=== PATIENT | male | born 2000 | race Caucasian/White ===

== ENCOUNTER 2022-05-31 12:19 | Observation (INO) ==
[2022-05-31] MEDS ORDERED: SODIUM CHLORIDE 0.9% 1000ML 1,000 ML IV ONE (12:34)
--- NOTE | 2022-05-31 12:36 | Emergency Department Note ---
Impression & Plan Myocarditis, Type 1 diabetes ED Provider Note Name: JOHN PAUL HASKINS Age: 21 Sex: M Arrives Via: Walk-In Informant: Patient ED Provider: Doc Robbins MD Chief Complaint: Chest pain Impression: As per impressions above Medical Decision Makin-year-old male with 1 week history of fevers, chills, sore throat some URI symptoms. He does have a history of type 1 diabetes noted some ketones earlier though they are improving. He was seen at urgent care with concern for pericarditis and thus sent to the ER. On arrival he is some nonspecific ST elev ation anterior laterally with mild depression inferiorly. There is no STEMI morphology and is not consistent with ACS. He has no current chest pain it is purely positional. Does have a history of an injury to his right mathew several weeks ago and no calf pain or thigh pain. I do not feel this is consistent with PE or dissection. His laboratory work-up is remarkable for a troponin of 12,000 and a mildly elevated CK. He had a chest x-ray prior to arrival which is reported as negative. The strep testing prior to arrival was negative. I did get a COVID/flu/RSV testing which is negative. Do not feel that he requires heparin at this time. I reviewed the case with on-call cardiology who agreed that if asymptomatic hold off on medications at this time. They advised hospitalization, echo and monitoring with repeat troponin. Patient is comfortable this plan. Prior Medical Record and Triage/Nursing Notes reviewed by Me Additional history obtained from chart and outpatient urgent care paperwork from [facility] Differentials:Myocarditis, Pericarditis, Effusion, PE, Dissection, pneumonia, amongst others. Vital Signs: reviewed and remarkable for no significant abnormalities Labs:Reviewed and remarkable for troponin elevation EKG:As per my interpretation. Indication chest pain. Normal sinus rhythm at 86 bpm and QTC of 411. There is nonspecific anterior lateral ST elevations with mild inferior depression which is very similar to the EKG from [facility]. There is no ectopy appreciated. Cardiac/Tele Monitoring: Cardiac Monitoring: An Order was placed for continuous cardiac monitoring. The monitor shows a rate of 80 with a normal sinus rhythm. Consults:Dr Kathy CURRY Cards, Dr Mir CURRY Hospitalist Plan: Disposition:Hospitalization. Condition: Good History of Present Illness:21-year-old male arrives for evaluation of chest pain. Patient notes he has been ill for the last week. Associated fevers, cough, cold, congestion with a T-max of 104 at home. Notes this morning he woke up and was feeling some chest discomfort. States sharp left-sided chest pain worse with bending forward. Better with laying flat. No medications prior to arrival. No falls, trauma, injuries. He denies syncope. States he is breathing well without any back pain, abdominal pain, nausea, vomiting, urinary/bowel symptoms, leg swelling, bruising/bleeding or other concerning signs or symptoms. He has no history of similar. Does have a history of diabetes notes his blood sugars have been running in the 300s with some ketones the last few days which is not unusual for him in the setting of infection. He states he feels comfortable managing this and otherwise has been doing well. No medications prior to arrival other than his insulin. Nothing further makes worse laying flat makes better. Patient does note that he injured his anterior left upper mathew about 4 weeks ago. Denies any calf or thigh pain notes that this area is been sore since he hit it. ROS: See above HPI for pertinent positives & negatives. A total of 10 systems reviewed and were otherwise negative. Past Medical History:Type 1 diabetes Past Surgical History:None Family History:See Below Social History:See Below Home Medications:See Below Allergies:No known drug allergies Vitals:Blood Pressure: 125/76, Pulse 91, RR 20, T 37C, O2 99% on RA Physical Exam: GENERAL: Patient is well appearing and in minimal distress. EYES: No scleral icterus, unremarkable pupils. ENT: Mucous membranes dry, no nasal congestion. NECK: No masses appreciated, nomeningismus, trachea is midline. RESPIRATORY: No dyspnea. Clear to auscultation and equal bilaterally. No wheeze, no rhonchi. CARDIOVASCULAR: Regular rate and rhythm.No murmurs, rubs, gallops appreciated. GASTROINTESTINAL: Abdomen soft, non-tender, no peritonitis.Bowel sounds positive.No masses appreciated. BACK: No midline tenderness, no CVA tenderness EXTREMITIES: Normal motion all extremities, no cyanosis, no edema. NEUROLOGIC: Alert and oriented, no acute motor or sensory deficits, no focal weakness, cranial nerves grossly intact. SKIN: No rash, no jaundice, no diaphoresis. Mild healing abrasion left upper anterior mathew. PSYCH: Appropriate GCS: 15 ED Course: Times/Reassessments: Stable throughout no distress and comfortable plan for hospitalization. Doc Robbins MD Past Med/Surg History Medical History Type 1 diabetes Surgical History No pertinent past surgical history Family History Denies family history of Ovarian cancer Prostate cancer Myocardial infarction Breast cancer Colorectal cancer Social History (Updated 09/12/21 @ 09:06 by Eva Montesinos LPN) Smoking Status: Never smoker Second Hand Exposure: No; Hx Alcohol Use: No Hx Substance Use: No Preferred Language: Tanzanian Communication Ability: Effective Hearing Ability: Normal Acoustic Intelligence Specialist Required: No marital status: Single Current Living Situation: Family Current Living Situation Comment: Lives with Grandmother and uncle current occupational status: employed current occupation: [employer] How many Children do You have: 0 Feels Safe at Home: Yes Childhood Exposure to Second-Hand Smoke: No caffeine: Yes (Iced Tea) Dental Care, Regularly: Yes 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 Use: always Sunscreen Use: Yes Allergies Allergies Allergy/AdvReac Type Severity Reaction Status Date / Time No Known Allergies Allergy Verified 05/31/22 15:38 Home Meds Home Medications Medication Instructions Recorded Confirmed insulin glargine 100 unit/mL (3 45 unit subcut QAM 11/29/20 05/31/22 mL) subcutaneous pen (Lantus Solostar U-100 Insulin) blood-glucose sensor (Dexcom G6 #3 ea 01/10/21 09/12/21 Sensor device) blood-glucose transmitter (Dexcom #1 ea 01/10/21 09/12/21 G6 Transmitter device) subcutaneous insulin pump (t:slim #1 ea 01/10/21 09/12/21 X2 Insulin Pump) insulin syringe-needle U-100 1 mL 02/21/21 09/12/21 31 gauge x 5/16" (BD Insulin Syringe Ultra-Fine) pen needle, diabetic 31 gauge x 02/21/21 09/12/21 3/16" (BD Ultra-Fine Mini Pen Needle) insulin lispro 100 unit/mL 0 sliding scale dose subcut 05/31/22 05/31/22 subcutaneous solution (Humalog DIRECTED U-100 Insulin) Previous Rx's Medication Instructions Recorded glucose 4 gram chewable tablet 12 g PO Q15M PRN hypoglycemia #20 06/06/21 tabs Results & Data (ED) Vital Signs Vital Signs - 24 hr 05/31/22 12:21 05/31/22 12:20 05/31/22 12:20 Temperature 37 C Temperature Source Temporal Artery Scan Pulse Rate 91 H Pulse Rate [Apical] Pulse Rate from SpO2 Sensor Pulse Rhythm Regular Pulse Rhythm [Apical] Pulse Strength Normal Pulse Strength [Apical] Respiratory Rate 20 16 Respiratory Effort / Characteristics Non-Labored Spontaneous Non-Labored Spontaneous Respiratory Depth Normal Normal Respiratory Pattern Blood Pressure 125/76 Blood Pressure [Right Arm] Blood Pressure Mean 92 Blood Pressure Mean [Right Arm] Pulse Oximetry 99 99 Oxygen Delivery Method Room Air Room Air Sepsis Recent Fever Within 48 Hours No Sepsis New/Unexplained Change in Mental Status No Sepsis Action Taken by Nursing No Action Required 05/31/22 13:00 05/31/22 13:10 05/31/22 13:20 Temperature Temperature Source Pulse Rate 88 84 79 Pulse Rate [Apical] Pulse Rate from SpO2 Sensor Pulse Rhythm Pulse Rhythm [Apical] Pulse Strength Pulse Strength [Apical] Respiratory Rate 16 24 22 Respiratory Effort / Characteristics Respiratory Depth Respiratory Pattern Blood Pressure Blood Pressure [Right Arm] Blood Pressure Mean Blood Pressure Mean [Right Arm] Pulse Oximetry 98 98 98 Oxygen Delivery Method Room Air Room Air Room Air Sepsis Recent Fever Within 48 Hours Sepsis New/Unexplained Change in Mental Status Sepsis Action Taken by Nursing 05/31/22 13:30 05/31/22 13:40 05/31/22 13:50 Temperature Temperature Source Pulse Rate 97 H 91 H 83 Pulse Rate [Apical] Pulse Rate from SpO2 Sensor Pulse Rhythm Pulse Rhythm [Apical] Pulse Strength Pulse Strength [Apical] Respiratory Rate 16 19 23 Respiratory Effort / Characteristics Respiratory Depth Respiratory Pattern Blood Pressure Blood Pressure [Right Arm] Blood Pressure Mean Blood Pressure Mean [Right Arm] Pulse Oximetry 98 99 98 Oxygen Delivery Method Room Air Room Air Room Air Sepsis Recent Fever Within 48 Hours Sepsis New/Unexplained Change in Mental Status Sepsis Action Taken by Nursing 05/31/22 14:00 05/31/22 14:10 05/31/22 15:00 Temperature Temperature Source Pulse Rate 82 87 Pulse Rate [Apical] 90 Pulse Rate from SpO2 Sensor 84 86 Pulse Rhythm Pulse Rhythm [Apical] Regular Pulse Strength Pulse Strength [Apical] Normal Respiratory Rate 18 21 18 Respiratory Effort / Characteristics Non-Labored Respiratory Depth Normal Respiratory Pattern Regular Blood Pressure 129/74 Blood Pressure [Right Arm] 111/59 L Blood Pressure Mean 92 Blood Pressure Mean [Right Arm] 76 Pulse Oximetry 99 99 98 Oxygen Delivery Method Room Air Room Air Room Air Sepsis Recent Fever Within 48 Hours Sepsis New/Unexplained Change in Mental Status Sepsis Action Taken by Nursing Laboratory Data Result diagrams: 05/31/22 12:48 05/31/22 12:48 Lab Results 05/31/22 05/31/22 05/31/22 Range/Units 12:44 12:48 12:48 WBC 4.67 L (4.8-10.8) K/ul RBC 4.93 (4.63-6.08) M/uL Hgb 13.8 L (14.0-18.0) g/dl Hct 42.0 (40.1-51.0) % MCV 85.2 (80.0-100.0) fL MCH 28.0 (25.0-34.0) pg MCHC 32.9 (32.0-36.0) g/dL RDW Std Deviation 38.3 (36.4-46.3) fL RDW Coeff of Kristen 12.3 (11.5-14.5) % Plt Count 225 (130-400) K/uL MPV 9.1 L (9.4-12.4) fL Neutrophils % (Manual) 49 % Lymphocytes % (Manual) 19 % Reactive Lymphs % (Man) 26 % Monocytes % (Manual) 7 % Neutrophils # (Manual) 2.29 (1.4-6.5) K/uL Lymphocytes # (Manual) 0.89 L (1.2-3.4) K/uL Reactive Lymphs # 1.21 K/uL Monocytes # (Manual) 0.33 (0.24-0.82) K/uL Sodium 142 (136-145) mmol/L Potassium 4.9 (3.5-5.1) mmol/L Chloride 107 (98-107) mmol/L Carbon Dioxide 28 (21-32) mmol/L Anion Gap 7 (3-11) BUN 13 (6-23) mg/dl Creatinine 0.81 (0.6-1.4) mg/dl Est Cr Clr Drug Dosing 156.2 ml/min Est GFR ( Amer) 149.3 ml/min Est GFR (Non-Af Amer) 128.8 ml/min BUN/Creatinine Ratio 16.0 (10-20) Glucose 109 H (70-99(Fasting)) mg/dl Calcium 9.2 (8.5-10.1) mg/dl Magnesium 2.3 (1.7-2.4) mg/dl Total Creatine Kinase 622 H (30-223) U/L Troponin I High Sens 66344.0 H* (0-20) pg/ml C-Reactive Protein 12.15 H (0-0.5) mg/dl SARS-CoV-2 (PCR) NEGATIVE (Negative) Influenza Type A (PCR) Negative (Neg) Influenza Type B (PCR) Negative (Neg) RSV (RT-PCR) Negative (Neg) Administered Medications Discontinued Medications Sodium Chloride (Nss 1000ml) 1,000 mls @ 999 mls/hr IV .Q1H1M ONE Stop: 05/31/22 13:34 Last Infusion: 05/31/22 14:10 Dose: 0 mls/hr Documented By: PR Admin: 05/31/22 12:51 Dose: 999 mls/hr Documented By: OAM Discharge Plan Visit Data Chief Complaint: Cardiac Assessment Stated Complaint: HEART PROBLEMS ED Provider: Doc Robbins Discharge Problem: Myocarditis, Type 1 diabetes Forms Stand Alone Forms: [facility] [employer] Prescriptions Prescriptions: No Action glucose 4 gram tablet,chewable 12 g PO Q15M PRN (Reason: hypoglycemia) Qty: 20 3RF Rx Instructions: until symptoms of low blood sugar are controlled (DME) t:slim X2 Insulin Pump Misc See Rx Instructions .ROUTE .MEDSUPPLY Qty: 1 Rx Instructions: As directed (DME) Dexcom G6 Transmitter Device See Rx Instructions .ROUTE .MEDSUPPLY Qty: 1 Rx Instructions: As directed (DME) Dexcom G6 Sensor Device See Rx Instructions .ROUTE .MEDSUPPLY Qty: 3 Rx Instructions: As directed Lantus Solostar U-100 Insulin 100 unit/mL (3 mL) insulin pen 45 unit subcut QAM Rx Instructions: PER PT. (DME) insulin syringe-needle U-100 [BD Insulin Syringe Ultra-Fine] 1 mL 31 gauge x 5/16 syringe See Rx Instructions miscellaneous .MEDSUPPLY Rx Instructions: Inject with Humalog three times daily in case of pump failure PRN (DME) pen needle, diabetic [BD Ultra-Fine Mini Pen Needle] 31 gauge x 3/16" needle See Rx Instructions .Route Rx Instructions: Inject once daily with Lantus in case of pump failure PRN insulin lispro [Humalog U-100 Insulin] 100 unit/mL solution 0 sliding scale dose subcut DIRECTED MDD 150 UNITS/DAILY Rx Instructions: PER PT "PUMP NOT ON". via insulin pump; TDD 150 units Referrals Referrals: Miguel Ann DO [Primary Care Provider] -
[2022-05-31 12:58] LABS: Hemoglobin 13.8 g/dl (14.0-18.0); Mean Corpuscular Hgb Conc 32.9 g/dL (32.0-36.0); Mean Corpuscular Volume 85.2 fL (80.0-100.0); Mean Platelet Volume 9.1 fL (9.4-12.4); Platelet Count 225 K/uL (130-400); RDW Coefficient of Variation 12.3 % (11.5-14.5); RDW Standard Deviation 38.3 fL (36.4-46.3); Red Blood Count 4.93 M/uL (4.63-6.08); White Blood Count 4.67 K/ul (4.8-10.8)
[2022-05-31 13:20] LABS: Lymphocytes # (manual) 0.89 K/uL (1.2-3.4); Lymphocytes % (manual) 19 %; Monocytes # (manual) 0.33 K/uL (0.24-0.82); Monocytes % (manual) 7 %; Neutrophils # (manual) 2.29 K/uL (1.4-6.5); Neutrophils % (manual) 49 %; Reactive Lymphocytes # (manual) 1.21 K/uL; Reactive Lymphocytes % (manual) 26 %
[2022-05-31 13:34] LABS: C Reactive Protein 12.15 mg/dl (0-0.5); Calcium 9.2 mg/dl (8.5-10.1); Creatinine Clr Calc Pharmacy 156.2 ml/min; Est GFR (African American) 149.3 ml/min; Est GFR (Non-African American) 128.8 ml/min; Magnesium 2.3 mg/dl (1.7-2.4); Potassium 4.9 mmol/L (3.5-5.1)
[2022-05-31 13:35] LABS: Influenza A virus by PCR Negative (Neg); Influenza B virus by PCR Negative (Neg); RSV by PCR Negative (Neg); SARS CoV2 RNA(COVID-19) Ceph NEGATIVE (Negative)
--- NOTE | 2022-05-31 15:03 | History & Physical Report ---
Date of Service May 31, 2022 Assessment & Plan (1) Myocarditis: Plan: Patient will be observed for myocarditis pending echocardiogram serial troponins and EKGs kept on the monitor. After discussion with cardiology since for concern for myocarditis or pericarditis will not institute ibuprofen therapy however if chest pain does resolve consideration of aspirin therapy twice daily would be recommended and if that does not work consideration of colchicine at that point. Echocardiogram is being performed in the ER pending cardiology consultation today Patient is currently without symptoms (2) Type 1 diabetes: Plan: Patient is on insulin pump however at home had ketones and took himself off his pump. He was copiously hydrating himself. He was instructed that when he takes himself off the pump he should have the following Lantus 45 units every morning which he took in the morning of 05/31/2022 Humalog sliding scale with the goal range of 110 and 160 correction factor of 18 and a carb ratio of 5:1 We will employ this sliding scale until the patient's father brings his insulin pump at which time we will allow him to use his pump and home monitoring system Plan DVT prevention is SCDs and early ambulation History of Present Illness Primary Care Provider: Miguel Ann, 21-year-old type I diabetic presents to the ER with shaking chills fever body aches and elevation of his blood glucose with ketones present by home dipstick. Patient states he has been sick for about a week week and a half. He is had a high temperature of 104 at home. Other people in his family have been sick. He states he is never been admitted for DKA. In the ER he is markedly elevated troponin at 12,000 with concerns for myocarditis. The patient did take ibuprofen at home and currently has no chest pain. Additionally he has a CRP of 12.5 and an EKG showing diffuse ST changes. Because the patient is pain-free will not institute therapy however if therapy would be recommended cardiology does recommend aspirin and possibly colchicine but to avoid nonsteroidals at this time as the patient has more myocarditis and pericarditis. Initial viral studies of COVID RSV and influenza are negative in the emergency department chest x-ray is pending at this time Allergies Allergy/AdvReac Type Severity Reaction Status Date / Time No Known Allergies Allergy Verified 09/12/21 09:00 Home Medications Medication Instructions Recorded Confirmed Type insulin glargine 100 unit/mL (3 See Rx Instructions subcut QPM PRN 11/29/20 09/12/21 History mL) subcutaneous pen (Lantus Solostar U-100 Insulin) blood-glucose sensor (Dexcom G6 #3 ea 01/10/21 09/12/21 History Sensor device) blood-glucose transmitter (Dexcom #1 ea 01/10/21 09/12/21 History G6 Transmitter device) subcutaneous insulin pump (t:slim #1 ea 01/10/21 09/12/21 History X2 Insulin Pump) insulin syringe-needle U-100 1 mL 02/21/21 09/12/21 History 31 gauge x 5/16" (BD Insulin Syringe Ultra-Fine) pen needle, diabetic 31 gauge x 02/21/21 09/12/21 History 3/16" (BD Ultra-Fine Mini Pen Needle) glucose 4 gram chewable tablet 12 g PO Q15M PRN hypoglycemia #20 06/06/21 09/12/21 Rx tabs insulin lispro 100 unit/mL 150 unit (1.5 mL) subcut .COMPLEX 02/06/22 Rx subcutaneous solution (Humalog #50 mL U-100 Insulin) Past Med/Surg History Medical History Type 1 diabetes Surgical History No pertinent past surgical history Family History Denies family history of Ovarian cancer Prostate cancer Myocardial infarction Breast cancer Colorectal cancer Social History (Updated 09/12/21 @ 09:06 by Eva Montesinos LPN) Smoking Status: Never smoker Second Hand Exposure: No; Hx Alcohol Use: No Hx Substance Use: No Preferred Language: Finnish Communication Ability: Effective Hearing Ability: Normal Family And Consumer Sciences Professor Required: No marital status: Single Current Living Situation: Family Current Living Situation Comment: Lives with Grandmother and uncle current occupational status: employed current occupation: [employer] How many Children do You have: 0 Feels Safe at Home: Yes Childhood Exposure to Second-Hand Smoke: No caffeine: Yes (Iced Tea) Dental Care, Regularly: Yes 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 Use: always Sunscreen Use: Yes Review of Systems Review of Systems: Moderate distress and fatigue no headache, no visual changes no speech or swallowing issues does have minor sore throat Prehospital chest pain, since resolved, no pressure or palpitations no shortness of breath, has had a nonproductive cough no abdominal pain, nausea or vomiting, diarrhea or constipation no dysuria, hematuria or frequency no focal joint pain or swelling no back pain, CVA tenderness or radicular pain no bruising, bleeding or rashes no focal signs of weakness or numbness or altered sensation no complaints of anxiety or depression.. Physical Exam Physical Exam: The patient appeared well nourished and normally developed. Vital signs as documented. Tympanic membranes are clear oropharynx is erythematous without exudates Head exam is normocephalic atraumatic Neck is without JVD, thyromegaly, or carotid bruits. No lymphadenopathy Lungs are clear to auscultation, no focal loss of breath sounds Cardiac exam, Rhythm is regular.. No murmurs, rubs or gallops. Abdominal exam reveals normal bowel sounds, soft non tender, no masses Extremities are nonedematous and both pedal pulses are present Neurologic exam is alert and oriented, no focal loss of strength or sensation Skin is without bruises or rashes Psychologically is without concerns for anxiety or depression.. Results & Data Results & Data ([place]) Vital Signs (Past 12 Hours) Vital Signs Temp Pulse Resp BP Pulse Ox O2 Del Method 05/31/22 14:10 87 21 99 Room Air 05/31/22 14:00 82 18 129/74 99 Room Air 05/31/22 13:50 83 23 98 Room Air 05/31/22 13:40 91 H 19 99 Room Air 05/31/22 13:30 97 H 16 98 Room Air 05/31/22 13:20 79 22 98 Room Air 05/31/22 13:10 84 24 98 Room Air 05/31/22 13:00 88 16 98 Room Air 05/31/22 12:20 16 05/31/22 12:20 99 Room Air 05/31/22 12:21 98.6 F 91 H 20 125/76 99 Room Air Code Status & VTE Plan VTE Prophylaxis Plan VTE Prophylaxis will be ordered: Yes PG Care Time/CCT Total # of Minutes Spent Total Time Spent with Patient: Total time spent is greater than 50% in coordination of care (as documented) at patient's floor/unit and/or counseling patient: Coding Level of Care Code INT OBSERVATION CARE 70M LVL 3 Diagnoses Myocarditis I51.4 Type 1 diabetes E10.65 Diabetes mellitus complication status: with hyperglycemia (1) Type 1 diabetes Diabetes mellitus complication status: with hyperglycemia Qualified Code(s): E10.65 - Type 1 diabetes mellitus with hyperglycemia
--- NOTE | 2022-05-31 15:40 | Cardiology Consultation ---
Date of Consultation May 31, 2022 Assessment & Plan (1) Acute myopericarditis: Plan ASSESSMENT/PLAN: 1. Acute myopericarditis: Discussed the diagnosis with patient. Fortunately, chest pain-free currently and had been taking ibuprofen for several days. Will start colchicine 0.6 mg p.o. b.i.d. and continue for a 3 month course. If he should have recurrent chest pain, can start b.i.d. aspirin. Should avoid strenuous exercise for 3 months. Continue to trend troponins and monitor for arrhythmia on telemetry. Fortunately, LV systolic function is normal. 2. Disposition: Tomorrow, please contact the on-call secure software assessor for questions or concerns. Will notify on-call Cardiology about this patient's presentation and plan of care. Patient discussed with Dr. Robbins of the emergency department and Dr. Hester of the hospitalist service. Thank you for allowing me to participate in the care of your patient. Please call for any other questions or concerns. Sincerely, Miles Chavez M.D. History of Present Illness Reason for Consultation: Myopericarditis Requesting Physician: Javan Hester Attending Physician: Javan Hester History of Present Illness Mr. Rivera is a very pleasant 21-year-old gentleman with a history significant for type 1 diabetes. He presented to the emergency department on 05/31/2022 with chest discomfort. For the past 1.5 weeks, he has been ill. It started with a sore throat. After a few days, he developed a fever. for the fever, he was taking ibuprofen 400- 600 mg every 3-4 hours. Last night he took NyQuil. Several days ago, he developed bad fevers and shaking chills. Last night, he developed chest pain which was described as a deep, ache, hard, pressure. It was pleuritic in nature, especially last night. It was also somewhat positional. He felt best however laying on his back and on his side and felt okay standing upright and sitting. If he bent over, chest pain would worsen last night when the chest pain began, he had shaking chills and drenching sweats while laying in bed. He once again took ibuprofen. Upon presentation here, he was afebrile. He was chest pain-free during this evaluation. His troponin was checked in the emergency department and noted to be 12,338. This prompted a call from Dr. Robbins of the emergency department. It was recommended that he be admitted. Thus far, he has been noted to be negative for flu, RSV, and COVID. Patient reports that he was also negative for strep. He has had many sick contacts recently including strep and flu. He denies shortness of breath, syncope, near-syncope, palpitations, edema, or bleeding. Review of systems: As above. Review of systems otherwise negative/unremarkable. Family history: No known premature CAD or cardiomyopathy. Social history: He denies tobacco, alcohol, or drug abuse. He lives with his aunt, uncle, and grandmother. His mother lives in [place] and his father lives nearby. He is on good terms with his parents. 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 He was unaccompanied in the emergency department. Allergies Allergy/AdvReac Type Severity Reaction Status Date / Time No Known Allergies Allergy Verified 05/31/22 15:38 Home Medications Medication Instructions Recorded Confirmed Type insulin glargine 100 unit/mL (3 45 unit subcut QAM 11/29/20 05/31/22 History mL) subcutaneous pen (Lantus Solostar U-100 Insulin) blood-glucose sensor (Dexcom G6 #3 ea 01/10/21 09/12/21 History Sensor device) blood-glucose transmitter (Dexcom #1 ea 01/10/21 09/12/21 History G6 Transmitter device) subcutaneous insulin pump (t:slim #1 ea 01/10/21 09/12/21 History X2 Insulin Pump) insulin syringe-needle U-100 1 mL 02/21/21 09/12/21 History 31 gauge x 5/16" (BD Insulin Syringe Ultra-Fine) pen needle, diabetic 31 gauge x 02/21/21 09/12/21 History 3/16" (BD Ultra-Fine Mini Pen Needle) glucose 4 gram chewable tablet 12 g PO Q15M PRN hypoglycemia #20 06/06/21 05/31/22 Rx tabs insulin lispro 100 unit/mL 0 sliding scale dose subcut 05/31/22 05/31/22 History subcutaneous solution (Humalog DIRECTED U-100 Insulin) Patient History Medical History Type 1 diabetes Surgical History No pertinent past surgical history Family History Denies family history of Ovarian cancer Prostate cancer Myocardial infarction Breast cancer Colorectal cancer Social History (Updated 09/12/21 @ 09:06 by Eva Montesinos LPN) Smoking Status: Never smoker Second Hand Exposure: No; Hx Alcohol Use: No Hx Substance Use: No Preferred Language: Arabic Communication Ability: Effective Hearing Ability: Normal Event Staff Required: No Beliefs That Will Affect Care: None marital status: Single Current Living Situation: Family Current Living Situation Comment: Lives with Grandmother and uncle current occupational status: employed current occupation: [employer] How many Children do You have: 0 Other Information That Helps Us Care for You: No Feels Safe at Home: Yes Safety Concerns: Feels Safe At This Time Childhood Exposure to Second-Hand Smoke: No caffeine: Yes (Iced Tea) Dental Care, Regularly: Yes 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 Use: always Sunscreen Use: Yes Assistive Devices: None Physical Exam Physical Exam: Gen.: No acute distress. Alert and oriented. HEENT: Anicteric sclera. Neck: No JVD. No bruits. Normal carotid upstrokes bilaterally. Cardiac: PMI was nondisplaced. No ventricular heave. Regular. Normal S1-S2. No murmurs, rubs, or gallops. Pulmonary: Clear to auscultation bilaterally without wheezes, rales, or rhonchi. Abdomen: Soft, nontender, nondistended, with normoactive bowel sounds. No bruits noted. Extremities: 2+ radial pulses bilaterally. 2+ posterior tibialis pulses bilaterally. No edema or cyanosis. Psychiatric: Affect appears appropriate. Results & Data ([facility]) Vital Signs (Past 12 Hours) Vital Signs Temp Pulse Pulse Resp BP BP Pulse Ox 05/31/22 15:00 90 18 111/59 L 98 05/31/22 14:10 87 21 99 05/31/22 14:00 82 18 129/74 99 05/31/22 13:50 83 23 98 05/31/22 13:40 91 H 19 99 05/31/22 13:30 97 H 16 98 05/31/22 13:20 79 22 98 05/31/22 13:10 84 24 98 05/31/22 13:00 88 16 98 05/31/22 12:20 16 05/31/22 12:20 99 05/31/22 12:21 37 C 91 H 20 125/76 99 O2 Del Method 05/31/22 15:00 Room Air 05/31/22 14:10 Room Air 05/31/22 14:00 Room Air 05/31/22 13:50 Room Air 05/31/22 13:40 Room Air 05/31/22 13:30 Room Air 05/31/22 13:20 Room Air 05/31/22 13:10 Room Air 05/31/22 13:00 Room Air 05/31/22 12:20 05/31/22 12:20 Room Air 05/31/22 12:21 Room Air Laboratory Results Laboratory Results - last 24 hr 05/31/22 05/31/22 05/31/22 12:44 12:48 12:48 WBC 4.67 L RBC 4.93 Hgb 13.8 L Hct 42.0 MCV 85.2 MCH 28.0 MCHC 32.9 RDW Std Deviation 38.3 RDW Coeff of Kristen 12.3 Plt Count 225 MPV 9.1 L Neutrophils % (Manual) 49 Lymphocytes % (Manual) 19 Reactive Lymphs % (Man) 26 Monocytes % (Manual) 7 Neutrophils # (Manual) 2.29 Lymphocytes # (Manual) 0.89 L Reactive Lymphs # 1.21 Monocytes # (Manual) 0.33 Sodium 142 Potassium 4.9 Chloride 107 Carbon Dioxide 28 Anion Gap 7 BUN 13 Creatinine 0.81 Est Cr Clr Drug Dosing 156.2 Est GFR ( Amer) 149.3 Est GFR (Non-Af Amer) 128.8 BUN/Creatinine Ratio 16.0 Glucose 109 H Calcium 9.2 Magnesium 2.3 Total Creatine Kinase 622 H Troponin I High Sens 27395.0 H* C-Reactive Protein 12.15 H SARS-CoV-2 (PCR) NEGATIVE Influenza Type A (PCR) Negative Influenza Type B (PCR) Negative RSV (RT-PCR) Negative Diagnostic Findings ECG personally reviewed: ECG 05/31/2022 at 12:28 PM: Sinus rhythm [address] elevation with ND depression, consider pericarditis. Echo 05/31/2022: Normal LV size, wall motion, systolic function. EF 55-60%. No significant valvular abnormalities. Medications Administered Current Inpatient Medications Acetaminophen (Acetaminophen 500 Mg Tab) 1,000 mg PO Q8H PRN PRN Reason: Pain or Fever Stop: 06/30/22 16:19 Dextrose (Dextrose 50% 50 Ml Syringe) 25 - 50 ml IV UD PRN; Protocol PRN Reason: Hypoglycemia Protocol Stop: 06/30/22 16:19 Glucagon (Glucagon For Inj 1 Mg Vial) 1 mg SQ UD PRN; Protocol PRN Reason: Hypoglycemia Protocol Stop: 06/30/22 16:19 Glucose (Glucose 40% Gel 15 Gm Tube) 15 - 30 gm PO UD PRN; Protocol PRN Reason: Hypoglycemia Protocol Stop: 06/30/22 16:19 Glucose (Glucose 10 Tab/Tube) 4 - 8 tab PO UD PRN; Protocol PRN Reason: Hypoglycemia Treatment Stop: 06/30/22 16:19 Sodium Chloride (Nss 1000ml) 1,000 mls @ 125 mls/hr IV .Q8H HECTOR Stop: 06/01/22 00:19 Last Admin: 05/31/22 16:39 Dose: 125 mls/hr Insulin Aspart (Insulin Aspart Per Unit) [address] [facility] Stop: 06/30/22 16:29 Last Admin: 05/31/22 17:38 Dose: 6 units Insulin Aspart (Insulin, Rapid-Acting Pump) 1 each N/A [facility]; Protocol Stop: 06/30/22 16:29 Last Admin: 05/31/22 19:51 Dose: Not Given Insulin Aspart (Insulin Aspart 100 Units/Ml Vial) 0 units SC PRN PRN PRN Reason: Pump Refill Use ONLY Stop: 06/30/22 16:44 Miscellaneous (Carbohydrates For Hypoglycemia ) 15 - 30 gm PO UD PRN PRN Reason: Hypoglycemia Protocol Stop: 06/30/22 16:19 Morphine Sulfate (Morphine Sulfate 2 Mg/Ml Carp) 2 mg IV Q30M PRN PRN Reason: Chest Pain Stop: 06/14/22 16:19 Ondansetron HCl (Ondansetron Inj 2 Mg/Ml 2 Ml Vial) 4 mg IV Q6H PRN PRN Reason: Nausea Stop: 06/30/22 16:19 Oxycodone HCl (Oxycodone Hcl Ir 5 Mg Tab (Immediate Release)) 10 mg PO Q6H PRN PRN Reason: Moderate Pain 4-6/ Stop: 06/14/22 16:19 PG Care Time/CCT Total # of Minutes Spent Total Time Spent with Patient: Total time spent is greater than 50% in coordination of care (as documented) at patient's floor/unit and/or counseling patient: Coding Level of Care Code 46836 Office/OBS Consult Lvl 4 Diagnoses Acute myopericarditis I30.9
[2022-05-31] MEDS ORDERED: GLUCOSE 10 TAB/TUBE PO PRN ×2 (16:20)
[2022-05-31] MEDS ORDERED: DEXTROSE 50% 50 ML SYRINGE IV PRN (16:20)
[2022-05-31] MEDS ORDERED: ACETAMINOPHEN 500 MG TAB PO PRN (16:20)
[2022-05-31] MEDS ORDERED: NON-FORMULARY MEDICATION (Blood-Glucose Transmitter [Dexcom G6 Transmitter] device) SCH (16:20)
[2022-05-31] MEDS ORDERED: GLUCOSE 40% GEL 15 GM TUBE PO PRN (16:20)
[2022-05-31] MEDS ORDERED: ONDANSETRON INJ 2 MG/ML 2 ML VIAL IV PRN (16:20)
[2022-05-31] MEDS ORDERED: CARBOHYDRATES FOR HYPOGLYCEMIA PO PRN (16:20)
[2022-05-31] MEDS ORDERED: MoRPHine SULFATE 2 MG/ML CARP IV PRN (16:20)
[2022-05-31] MEDS ORDERED: NON-FORMULARY MEDICATION (Insulin Lispro [Humalog U-100 Insulin] 100 unit/mL solution) SQ SCH (16:20)
[2022-05-31] MEDS ORDERED: SODIUM CHLORIDE 0.9% 1000ML 1,000 ML IV SCH (16:20)
[2022-05-31] MEDS ORDERED: NON-FORMULARY MEDICATION (Blood-Glucose Sensor [Dexcom G6 Sensor] device) SCH (16:20)
[2022-05-31] MEDS ORDERED: oxyCODONE HCL IR 5 MG TAB (IMMEDIATE RELEASE) PO PRN (16:20)
[2022-05-31] MEDS ORDERED: GLUCAGON FOR INJ 1 MG VIAL SQ PRN (16:20)
[2022-05-31] MEDS ORDERED: INSULIN ASPART 100 UNITS/ML VIAL SC PRN (16:45)
[2022-05-31] MEDS: INSULIN ASPART PER UNIT SC SCH ×2 (17:38→21:18)
--- NOTE | 2022-05-31 18:09 | XCELERA ---
[id number]
[2022-05-31] MEDS: INSULIN, Rapid-Acting PUMP SCH ×2 (19:51→21:19)
[2022-05-31] MEDS: COLCHICINE 0.6 MG TAB PO SCH (21:13)
--- NOTE | 2022-05-31 23:59 | Electrocardiogram Report ---
Test Reason : Blood Pressure : / mmHG Vent. Rate : 086 BPM Atrial Rate : 086 BPM P-R Int : 162 ms QRS Dur : 094 ms QT Int : 344 ms P-R-T Axes : 041 074 018 degrees QTc Int : 411 ms Normal sinus rhythm ST elevation, consider early repolarization, pericarditis, or injury Abnormal ECG No previous ECGs available Confirmed by Maxwell Chavez ([id number]) on 05/31/2022 11:59:25 PM Referred By: Chandrakant Hodgson Confirmed By:Maxwell Chavez
[2022-06-01 06:53] LABS: Anion Gap 6 (3-11); BUN Creatinine Ratio 13.2 (10-20); Blood Urea Nitrogen 10 mg/dl (6-23); Calcium 8.9 mg/dl (8.5-10.1); Carbon Dioxide 29 mmol/L (21-32); Chloride 102 mmol/L (98-107); Creatinine Clr Calc Pharmacy 166.5 ml/min; Est GFR (African American) > 150.0 ml/min; Est GFR (Non-African American) 132.3 ml/min; Glucose 182 mg/dl (70-99(Fasting)); Potassium 4.5 mmol/L (3.5-5.1); Sodium 137 mmol/L (136-145)
[2022-06-01] MEDS: INSULIN ASPART PER UNIT SC SCH ×2 (09:45→12:00)
[2022-06-01] MEDS: INSULIN, Rapid-Acting PUMP SCH ×2 (09:45→12:02)
[2022-06-01] MEDS: COLCHICINE 0.6 MG TAB PO SCH (09:46)
--- NOTE | 2022-06-01 09:46 | Cardiology Progress Note ---
Date of Service June 01, 2022 Assessment & Plan (1) Acute myopericarditis: Plan: Patient is hemodynamically stable with benign telemetry and no symptoms, his troponin level has peaked and is now declining. As per Dr. 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 Would recommend cardiology follow-up with Dr. Chavez in 3 to 4 weeks. Will send a note to scheduling to arrange this, they will call him early next week. Okay for discharge home. Admission and Anticipated Discharge Date Admission Date: May 31, 2022 Subjective Doing well, no complaints. Denies chest pain, dyspnea, subjective palpitations, or lightheadedness. Telemetry shows sinus rhythm at normal rates with no significant ectopy. Physical Exam Physical Exam: No distress. BP normotensive. Pulse 90 bpm and regular without ectopy. Skin: no ecchymoses or generalized lesions. HEENT: unremarkable. Neck: no JVD or carotid bruits. Lungs: clear. Cardiac: regular rhythm, no murmur or gallop. No rub. Abdomen: benign. Extremities: no edema, pulses intact. Neurologic: normal affect and conversation, nonfocal. Results & Data ([facility]) Vital Signs (Past 12 Hours) Vital Signs Temp Pulse Pulse Resp BP Pulse Ox O2 Del Method 06/01/22 08:00 99.1 F 91 H 14 120/71 97 Room Air 06/01/22 02:38 98.1 F 97 H 18 132/68 100 Room Air 05/31/22 22:30 91 H 05/31/22 23:39 98.4 F 101 H 18 124/80 99 Room Air 05/31/22 22:22 99.7 F H Laboratory Results Peak troponin of 14,833 with subsequent value of 12,698 and 8904. Normal electrolytes, BUN 10, creatinine 0.76 Diagnostic Findings ECG today showed sinus rhythm at [address] elevations consistent with pericarditis. Compared with yesterday, lateral ST elevation less pronounced and lateral T waves now inverted (normal evolution for pericarditis). Echocardiogram yesterday showed EF 55-60% with no regional wall motion abnormalities or valvular abnormalities. Normal RVSP. PG Care Time/CCT Total # of Minutes Spent Total Time Spent with Patient: Total time spent is greater than 50% in coordination of care (as documented) at patient's floor/unit and/or counseling patient: Coding Level of Care Code 52225 Subseq Hosp Care Lvl 3 Diagnoses Acute myopericarditis I30.9
--- NOTE | 2022-06-01 10:37 | Electrocardiogram Report ---
Test Reason : Blood Pressure : / mmHG Vent. Rate : 085 BPM Atrial Rate : 085 BPM P-R Int : 170 ms QRS Dur : 090 ms QT Int : 350 ms P-R-T Axes : 012 082 076 degrees QTc Int : 416 ms Normal sinus rhythm Acute pericarditis Abnormal ECG When compared with ECG of 31-MAY-2022 12:28, ST elevation in Lateral leads less pronounced T-wave inversion in Lateral leads now present Confirmed by Berhane Ramon ([id number]) on 06/01/2022 10:37:32 AM Referred By: Chandrakant Hodgson Confirmed By:Berhane Ramon
--- NOTE | 2022-06-01 11:08 | Discharge Summary ---
Date of Service June 01, 2022 Admission HPI Per Admitting Provider 21-year-old type I diabetic presents to the ER with shaking chills fever body aches and elevation of his blood glucose with ketones present by home dipstick. Patient states he has been sick for about a week week and a half. He is had a high temperature of 104 at home. Other people in his family have been sick. He states he is never been admitted for DKA. In the ER he is markedly elevated troponin at 12,000 with concerns for myocarditis. The patient did take ibuprofen at home and currently has no chest pain. Additionally he has a CRP of 12.5 and an EKG showing diffuse ST changes. Because the patient is pain-free will not institute therapy however if therapy would be recommended cardiology does recommend aspirin and possibly colchicine but to avoid nonsteroidals at this time as the patient has more myocarditis and pericarditis. Initial viral studies of COVID RSV and influenza are negative in the emergency department chest x-ray is pending at this time Admission Exam Per Admitting Provider The patient appeared well nourished and normally developed. Vital signs as documented. Tympanic membranes are clear oropharynx is erythematous without exudates Head exam is normocephalic atraumatic Neck is without JVD, thyromegaly, or carotid bruits. No lymphadenopathy Lungs are clear to auscultation, no focal loss of breath sounds Cardiac exam, Rhythm is regular..No murmurs, rubs or gallops. Abdominal exam reveals normal bowel sounds, soft non tender, no masses Extremities are nonedematous and both pedal pulses are present Neurologic exam is alert and oriented, no focal loss of strength or sensation Skin is without bruises or rashes Psychologically is without concerns for anxiety or depression. Principal Diagnosis myocarditis Discharge Exam Constitutional NAD. Vitals WNL. Respiratory CTA bilaterally. No rhonchi, wheezing, or crackles. Non labored breathing. Cardiovascular RRR. No murmurs noted. No LE edema. Psychiatric Alert. Mood and affect congruent. Discharge Data Allergies Allergy/AdvReac Type Severity Reaction Status Date / Time No Known Allergies Allergy Verified 05/31/22 15:38 Consultations 05/31/22 14:35 ED Decision to Admit Stat 05/31/22 16:20 Consult Cardiology Routine Hospital Course (1) Acute myopericarditis: Pt is a 21 yo male with PMH of type 1 DM presenting due to abnormal EKG and chest pain. Myocarditis - pt initially w/ chest pain and fevers which have since resolved - EKG showed NSR w/ dx of acute pericarditis - troponin peaked at 14,000 but has since downtrended to 8,904 - echo showed EF 55-60% - per cardio, pt will continue colchicine 0.6 mg BID for 3 months - if chest pain recurs, pt can take aspirin 325 mg BID - f/u with cardiology in 3-4 weeks -recommend no heavy exertion Type 1 diabetes - pt on insulin pump at home - pt took himself off of the pump and he was instructed to follow the following regimen: - Lantus 45 units every morning which he took in the morning of 05/31/2022 - Humalog sliding scale with the goal range of 110 and 160 correction factor of 18 and a carb ratio of 5:1 - used sliding scale while hospitalized; able to resume pump regimen upon discharge - f/u with PCP/outreach consultant (2) Type 1 diabetes: Plan FEN: regular Code: full Dispo: home Total Time Total Time Spent Total Time Spent (In Minutes): as per attending attestation Discharge Plan Discharge Items Patient Disposition: Home - Self-Care Reason For Visit: MYOCARDITIS Discharge Diagnosis: myocarditis Activity: Per Instructions section Non-emergency contact: Primary Care Provider and Health Club Manager Call non-emergency contact if: you have any medication questions and your symptoms worsen Follow-up/Referrals: Maxwell Chavez MD [Physician] - (f/u 3-4 weeks, post myocarditis) Miguel Ann DO [Primary Care Provider] - Diet: Carb Count or DM1 Addtl Attending Provider Instructions: You were admitted to the hospital for chest pain and an abnormal EKG (showing the electrical activity of your heart). Your troponin levels (an enzyme released from your heart when it is overworking) were found to be elevated. However, while in the hospital, these levels peaked and have started to come down. It was found that you have an inflammation of your heart muscle called myocarditis. You were treated with colchicine, an anti-inflammatory medication. Due to the diagnosis of myocarditis, you should refrain from strenuous exercise for about 3 months. Make sure to discuss your activity level and any recurrent symptoms with your tank washer and primary care physician. A discharge summary will be sent to your primary care physician to ensure continuity of care. Please bring this discharge summary with you to your next office appointment so that your provider can review it at that time. Medications: Your medication list has been reviewed and reconciled upon discharge to ensure accuracy and continuity of care. An updated list of all your medications is included with your hospital discharge paperwork. Please review this list closely and make note of any changes to your medications. - Colchicine (the anti-inflammatory medication) has been sent to your pharmacy. You should take this medication twice per day for 3 months. - If you do have recurrent chest pain, you may start aspirin 325 mg twice per day. If this occurs, call your tank washer and primary care physician right away. Follow up appointments: - We have requested a follow up appointment with your primary care physician within one week of discharge. Please call their office if you do not hear from them. - You should also follow up with cardiology within a a few weeks of discharge. They should call you next week to schedule an appointment. If you do not hear from them, please call the cardiology office. - Keep all of your follow up appointments as already scheduled. If you cannot make an appointment, notify your provider. CONTACT YOUR PRIMARY CARE PROVIDER if you experience any of the following: - Recurrent chest pain - Difficulty following your treatment plan - Difficulty taking any of your medications CALL 911 OR GO TO THE EMERGENCY DEPARTMENT if you experience any of the following: - Sudden, severe abdominal pain or nausea/vomiting - Severe chest pain or chest pain that radiates to your jaw or arm - Sudden, severe shortness of breath or difficulty breathing Pending Studies at Discharge: No Stand-Alone Forms: [facility], Smoking Cessation Medications and DC Order Prescriptions: New colchicine [Colcrys] 0.6 mg Tablet 0.6 mg PO BID Qty: 180 0RF Continued glucose 4 gram tablet,chewable 12 g PO Q15M PRN (Reason: hypoglycemia) Qty: 20 3RF Rx Instructions: until symptoms of low blood sugar are controlled (DME) t:slim X2 Insulin Pump Misc See Rx Instructions .ROUTE .MEDSUPPLY Qty: 1 Rx Instructions: As directed (DME) Dexcom G6 Transmitter Device See Rx Instructions .ROUTE .MEDSUPPLY Qty: 1 Rx Instructions: As directed (DME) Dexcom G6 Sensor Device See Rx Instructions .ROUTE .MEDSUPPLY Qty: 3 Rx Instructions: As directed Lantus Solostar U-100 Insulin 100 unit/mL (3 mL) insulin pen 45 unit subcut QAM Rx Instructions: PER PT. (DME) insulin syringe-needle U-100 [BD Insulin Syringe Ultra-Fine] 1 mL 31 gauge x 5/16 syringe See Rx Instructions miscellaneous .MEDSUPPLY Rx Instructions: Inject with Humalog three times daily in case of pump failure PRN (DME) pen needle, diabetic [BD Ultra-Fine Mini Pen Needle] 31 gauge x 3/16" needle See Rx Instructions .Route Rx Instructions: Inject once daily with Lantus in case of pump failure PRN insulin lispro [Humalog U-100 Insulin] 100 unit/mL solution 0 sliding scale dose subcut DIRECTED MDD 150 UNITS/DAILY Rx Instructions: PER PT "PUMP NOT ON". via insulin pump; TDD 150 units Discharge Orders: Discharge Order (Routine); Ordered 06/01/22 Ordered By: Kenyatta Benites Admission Data Admit Date/Time: 05/31/22 14:42 Attending Provider: Abigail Mccullough Admit Provider: Ambrocio Hester Primary Care Provider: Miguel Ann Other Providers: Maxwell Chavez Other Interventions: Discharge Summary Assessment (RN) Last Done: 06/01/22 15:29 Supervising Physician Co-Signing Physician Notes Resident Supervision Note: I personally saw and examined the patient. I verified all hsieh points and agree with Dr. Benites with the following exceptions and/or additions: S-Pt feeling much improved. No further fevers. No chest pain, palpitations, or SOB. Is eating and drinking. No diarrhea since starting colchicine. O- Vitals reviewed Gen: [AAOx3, NAD] HEENT: [anicteric sclerae, EOMI] CV: [RRR no mgr nl S1S2] Pulm: [CTAB no wcr] Abd: [+BS soft NT ND no masses or hernias] Ext: [no edema, 2+ DP pulses] Skin: [no rashes, warm/dry] Neuro: [full strength throughout] Labs, Rads, and ECG reviewed A/P-21 yo male here with a viral syndrome and myopericarditis. Troponin has peaked, symptoms are resolved, no arrhythmias noted on tele monitoring. Stable for dc to home on colchicine and close f/u with Cardiology and PCP. Restarted home insulin pump. Resident Activity Tracking Resident Involvement: Resident Care Provided Care Provided: Adult [facility] Medicine
[2022-06-02 07:26] LABS: Estimated Average Glucose 258 mg/dl; Hemoglobin A1C 10.6 % (4.5-5.6)
--- NOTE | 2022-06-06 16:42 | Billing Data ---
Date of Service June 01, 2022 Coding Level of Care Code 22845 OBS Care - Discharge
== END 2022-06-01 15:51 | disposition home or self-care (01) ==
LOC: ED 12:19 → 2E 12:19 → SUATTDRO 14:42 → 2E 16:03
DX: I30.9 Acute pericarditis, unspecified; E10.9 Type 1 diabetes mellitus without complications